=== PATIENT | female | born 1960 | race Caucasian/White ===

== ENCOUNTER 2019-06-24 09:13 | Outpatient (CLI) ==
--- NOTE | 2019-06-24 09:59 | US ---
EXAM: Thyroid ultrasound History: Thyromegaly. Technique: Multiple sonographic images through the thyroid gland were obtained. Color duplex Dopple r was used to interrogate vascular flow. Findings: The right lobe of the thyroid measures 5.3 cm x 2.9 cm x 1.7 cm and demonstrates heterogeneous echote xture with a few nodules and the largest being solid measuring 1.6 cm. The thyroid isthmus measures 0.5 cm in thickness. The left lobe of the thyroid measures 4.1 cm x 2.0 cm x 1.0 cm and demonstrates heterogeneous echotex ture with no discrete nodule identified. The thyroid gland is not hypervascular. Impression: Mildly enlarged heterogeneous thyroid gland with 1.6 cm dominant solid nodule in the rig ht thyroid lobe. Tissue sampling should be considered or at least a 6-month follow-up ultrasound to document stability.
== END 2019-06-24 09:14 | disposition home or self-care (01) ==
LOC: RAD 09:13
PROVIDERS: ATTEND Nurse Practitioner
DX: E01.0 Iodine-deficiency related diffuse (endemic) goiter (principal)